=== PATIENT | male | born 1990 | race Caucasian/White ===

== ENCOUNTER 2017-08-22 21:05 | Inpatient (IN) | payer SELFPAY ==
[2017-08-22 23:09] VITALS: BMI 23.7
--- NOTE | 2017-08-22 23:12 | HP ---
COWS - Scale Resting Pulse: 0= [place] 80 or Below Sweatin=Flushed/Facial Moisture Restless Observation: 1= Difficult to Sit Still Pupil Size: 0= Normal to Room Light Bone or Joint Aches: 1= Mild Discomfort Runny Nose/ Eye Tearin= Runny Nose/Eyes GI Upset > 30mins: 1= Stomach Cramp Tremor Observation: 1= Tremor [place], Not Seen Yawning Observation: 2= >3x During Session Anxiety or Irritability: 2=Irritable/Anxious Goose Flesh Skin: 0=Smooth Skin COWS Score: 12 Admission [facility] Chief Complaint: opioid withdrawal symptoms Allergies/Adverse Reactions: Allergies Allergy/AdvReac Type Severity Reaction Status Date / Time No Known Allergies Allergy Verified 08/22/17 22:48 History of Present Illness: 27 yo male with hx of nicotine, heroin (paranasal), crack / cocaine and marijuana dependence is here seeking detox for the first time. Reports no prior detox. Reports was linked to a out patient suboxone program and stopped at [facility] : insomnia, depression and anxiety. Denies suicidal / homicidal ideation or hx of suicide attempt. Reports no significant period of sobriety. Others' Prescriptions Patient Name: Santos Meeks Date: 1990 Address: [address] [place] [address] Sex: Male Rx Written Rx Dispensed Drug Quantity Days Supply Prescriber Name 03/24/2017 03/25/2017 suboxone 8 mg-2 mg sl film 14 7 Leyda Durand MD 11/24/2016 11/25/2016 suboxone 8 mg-2 mg sl film 60 30 Leyda Durand MD 10/18/2016 10/20/2016 suboxone 8 mg-2 mg sl film 30 15 Leyda Durand MD 10/06/2016 10/07/2016 suboxone 8 mg-2 mg sl film 30 15 Leyda Durand MD Exam Limitations: No Limitations - Ebola screening Have you traveled outside of the country in the last 21 days: No Have you had contact with anyone from an Ebola affected area: No Do you have a fever: No - Review of Systems Constitutional: Chills, Loss of Appetite, Changes in sleep, Unintentional Wgt. Loss (10 lbs) EENT: reports: Other (runny nose) Respiratory: reports: No Symptoms reported Cardiac: reports: No Symptoms Reported GI: reports: Poor Appetite, Poor Fluid Intake, Abdominal cramping : reports: No Symptoms Reported Musculoskeletal: reports: Back Pain Integumentary: reports: No Symptoms Reported Neuro: reports: Seizure (when using oxycontin, last seizure 2 years ago) Endocrine: reports: Increased Thirst Hematology: reports: No Symptoms Reported Psychiatric: reports: Anxious Other Systems: Reviewed and Negative Patient History - Patient Medical History Hx Anemia: No Hx Asthma: No Hx Chronic Obstructive Pulmonary Disease (COPD): No Hx Cancer: No Hx Cardiac Disorders: No Hx Congestive Heart Failure: No Hx Hypertension: No Hx Hypercholesterolemia: No Hx Pacemaker: No HX Cerebrovascular Accident: No Hx Seizures: Yes (DRUG RELATED SEIZSURE -2016) Hx Diabetes: No Hx Gastrointestinal Disorders: No Hx Liver Disease: No Hx Genitourinary Disorders: No Hx Sexually Transmitted Disorders: No Hx Renal Disease (ESRD): No Hx Thyroid Disease: No Hx Human Immunodeficiency Virus (HIV): No (last tested 2 years ago, declines testing ) Hx Hepatitis C: No Hx Depression: Yes Hx Suicide Attempt: No Hx Bipolar Disorder: No Hx Schizophrenia: No - Patient Surgical History Past Surgical History: Yes Hx Neurologic Surgery: No Hx Cataract Extraction: No Hx Cardiac Surgery: No Hx Lung Surgery: No Hx Breast Surgery: No Hx Breast Biopsy: No Hx Abdominal Surgery: No Hx Appendectomy: No Hx Cholecystectomy: No Hx Genitourinary Surgery: No Hx Section: No Hx Orthopedic Surgery: Yes (RIGHT KNEE SX) Anesthesia Reaction: No - PPD History Previous Implant?: No Documented Results: Negative w/o proof PPD to be Administered?: Yes - Smoking Cessation Smoking history: Current every day smoker Have you smoked in the past 12 months: Yes Aproximately how many cigarettes per day: 10 Hx Chewing Tobacco Use: No Initiated information on smoking cessation: Yes 'Breaking Loose' booklet given: 08/22/17 - Substance & Tx. History Hx Alcohol Use: No Hx Substance Use: Yes Substance Use Type: Alcohol, Cocaine, Heroin, Marijuana Hx Substance Use Treatment: No - Substances Abused Heroin Route: Inhalation Frequency: Daily Amount used: 8-10 BAGS DAILY Age of first use: 21 Date of Last Use: 08/20/17 Crack Route: Smoking Frequency: 3-6 times per week Amount used: 2 BAGS WHEN USED Age of first use: 26 Date of Last Use: 08/21/17 Marijuana/Hashish Route: Smoking Frequency: Daily Amount used: 2-3 BLUNTS DAILY Age of first use: 16 Date of Last Use: 08/22/17 Family Disease History - Family Disease History Family Disease History: Other: Father (, alcoholism ), Mother (thyroid d/ o ) Admission Physical Exam [facility] - Physical General Appearance: Yes: Disheveled, Mild Distress, Thin, Sweating, Anxious HEENTM: Yes: EOMI, Hearing grossly Normal, Normal ENT Inspection, Normocephalic , Normal Voice, JENNIFER, Pharynx Normal, Tm's normal Respiratory: Yes: Chest Non-Tender, Lungs Clear, Normal Breath Sounds, No Respiratory Distress, No Accessory Muscle Use Neck: Yes: No masses,lesions,Nodules, Trachea in good position Breast: Yes: Breast Exam Deferred Cardiology: Yes: Regular Rhythm, Regular Rate Abdominal: Yes: Normal Bowel Sounds, Non Tender, Flat, Soft Genitourinary: Yes: Within Normal Limits Back: Yes: Normal Inspection Musculoskeletal: Yes: full range of Motion, Gait Steady, Pelvis Stable, Back pain Extremities: Yes: Normal Capillary Refill, Normal Inspection, Normal Range of Motion, Non-Tender Neurological: Yes: devil dog II-XII NML intact, Fully Oriented, Alert, Motor Strength 5/5, Depressed Affect Integumentary: Yes: Normal Color, Warm, Diaphoresis Lymphatic: Yes: Within Normal Limits - Diagnostic (1) Opioid dependence with withdrawal Current Visit: Yes Status: Acute (2) Marijuana dependence Current Visit: Yes Status: Acute (3) Cocaine dependence Current Visit: Yes Status: Acute Qualifiers: Substance use status: uncomplicated Qualified Code(s): F14.20 - Cocaine dependence, uncomplicated (4) Insomnia Current Visit: Yes Status: Acute Qualifiers: Insomnia type: unspecified Qualified Code(s): G47.00 - Insomnia, unspecified (5) Nicotine dependence Current Visit: Yes Status: Acute Qualifiers: Nicotine product type: cigarettes (6) Back pain Current Visit: Yes Status: Acute Qualifiers: Back pain location: low back pain Chronicity: acute Back pain laterality : midline Sciatica presence: without sciatica Qualified Code(s): M54.5 - Low back pain Cleared for Admission [facility] - Detox or Rehab [facility] Level of Care: Medically Supervised Detox Regimen/Protocol: Methadone
[2017-08-22] MEDS ORDERED: MAGNESIUM HYDROX 2400MG/30ML ORAL SUSPENSION 30 ML CUP PO PRN (23:18)
[2017-08-22] MEDS ORDERED: MAGNESIUM CITRATE 300 ML BOTTLE PO PRN (23:18)
[2017-08-22] MEDS ORDERED: LOPERAMIDE HCL 2 MG CAPSULE PO PRN (23:18)
[2017-08-22] MEDS ORDERED: guaiFENesin/D-METHORPHAN HB 10 ML UNIT-DOSE CUPS PO PRN (23:18)
[2017-08-22] MEDS ORDERED: ACETAMINOPHEN 325 MG TABLET (FP) PO PRN (23:18)
[2017-08-22] MEDS ORDERED: MENTHOL/PHENOL 1 EACH UD MM PRN (23:18)
[2017-08-22] MEDS ORDERED: MAG HYDROX/AL HYDROX/SIMETH 30 ML UNIT-DOSE CUP PO PRN (23:18)
[2017-08-22] MEDS ORDERED: IBUPROFEN 400 MG TABLET (FP) PO PRN (23:18)
[2017-08-22] MEDS ORDERED: P-EPHED 60MG/TRIPROLIDI 2.5MG TABLET PO PRN (23:18)
[2017-08-23] MEDS ORDERED: METHADONE HCL 10 MG TABLET (FOR DETOX USE ONLY) PO ONE ×4 (00:07→23:00)
[2017-08-23] MEDS: diazePAM 5 MG TABLET PO PRN ×5 (02:25→22:31)
[2017-08-23] MEDS: NICOTINE POLACRILEX 2 MG GUM BC PRN ×7 (02:33→15:36)
[2017-08-23] MEDS: hydrOXYzine PAMOATE 50 MG CAPSULE (FP) PO PRN (04:38)
--- NOTE | 2017-08-23 07:40 | CONSULT ---
[facility] Psychiatric Consult - Data Date of interview: 08/23/17 Admission source: [facility] Identifying data: This is 27 years old male, single, lifing with family, unemployew, with no PA support, with no psychiatric hospitalization history, with history of nicotine, heroin (paranasal), crack / cocaine and marijuana dependence is here seeking for detox, reporting withdrawal symptoms. Substance Abuse History: - Smoking Cessation. Smoking history: Current every day smoker. Have you smoked in the past 12 months: Yes. Aproximately how many cigarettes per day: 10. Hx Chewing Tobacco Use: No. Initiated information on smoking cessation: Yes. 'Breaking Loose' booklet given: 08/22/17. - Substance & Tx. History. Hx Alcohol Use: No. Hx Substance Use: Yes. Substance Use Type : Alcohol, Cocaine, Heroin, Marijuana. Hx Substance Use Treatment: No. - Substances Abused. Heroin. Route: Inhalation. Frequency: Daily. Amount used: 8-10 BAGS DAILY. Age of first use: 21. Date of Last Use: 08/20/17. Crack. Route: Smoking. Frequency: 3-6 times per week. Amount used: 2 BAGS WHEN USED. Age of first use: 26. Date of Last Use: 08/21/17. Marijuana/ Hashish. Route: Smoking. Frequency: Daily. Amount used: 2-3 BLUNTS DAILY. Age of first use: 16. Date of Last Use: 08/22/17 Medical History: LBP Psychiatric History: Patient denies past psychiatric history, no medications taking prior to admission Physical/Sexual Abuse/Trauma History: Denies Additional Comment: Observation. Detox Unit Care Protocol Mental Status Exam - Mental Status Exam Alert and Oriented to: Person Cognitive Function: Fair Patient Appearance: Unkempt Mood: Sad Affect: Flat Patient Behavior: Sedated Speech Pattern: Delayed Voice Loudness: Mildly Soft/Quiet Thought Process: Circumstantial Thought Disorder: Being Controlled Hallucinations: Denies Suicidal Ideation: Denies Homicidal Ideation: Denies Insight/Judgement: Fair Sleep: Difficulty falling asleep Appetite: Fair Muscle strength/Tone: Normal Gait/Station: Normal Additional Comments: Observation. Detox Unit Care Protocol Psychiatric Findings - Problem List ([place] 1, 2,3) (1) Drug-induced mood disorder Current Visit: Yes Status: Suspected (2) Cocaine dependence Current Visit: Yes Status: Acute Qualifiers: Substance use status: uncomplicated Qualified Code(s): F14.20 - Cocaine dependence, uncomplicated (3) Marijuana dependence Current Visit: Yes Status: Acute (4) Nicotine dependence Current Visit: Yes Status: Acute Qualifiers: Nicotine product type: cigarettes (5) Opioid dependence with withdrawal Current Visit: Yes Status: Acute - Initial Treatment Plan Initial Treatment Plan: Observation. Detox Unit Care Protocol
[2017-08-23] MEDS ORDERED: BACLOFEN 10 MG TABLET (FP) PO ONE (09:27)
--- NOTE | 2017-08-23 09:29 | PN ---
S CIWA - CIWA Score Nausea/Vomitin-Mild Nausea/No Vomiting Muscle Tremors: 4-Moderate,w/Arms Extend Anxiety: 2 Agitation: 3 Paroxysmal Sweats: 1-Minimal Palms Moist Orientation: 0-Oriented Tacttile Disturbances: 0-None Auditory Disturbances: 0-None Visual Disturbances: 0-None Headache: 0-None Present CIWA-Ar Total Score: 11 BHS Progress Note (SOAP) Subjective: SWEAT TREMOR RESTLESSNESS MUSCLE ACHE TROUBLE SLEEP AT NIGHT Objective: 08/23/17 09:29 Vital Signs Temperature 98.1 F 08/23/17 06:00 Pulse Rate 71 08/23/17 06:00 Respiratory Rate 18 08/23/17 06:00 Blood Pressure 131/87 08/23/17 06:00 O2 Sat by Pulse Oximetry (%) LAB NOT AVAILABLE AT THIS TIME Assessment: 08/23/17 09:29 WITHDRAWAL SX MUSCLE CRAMP Plan: CONTINUE DETOX BACLOFEN X 1 DOSE
--- NOTE | 2017-08-23 09:38 | EKG ---
Test Reason : Blood Pressure : / mmHG Vent. Rate : 072 BPM Atrial Rate : 072 BPM P-R Int : 158 ms QRS Dur : 082 ms QT Int : 408 ms P-R-T Axes : 048 069 027 degrees QTc Int : 446 ms NORMAL SINUS RHYTHM NORMAL ECG NO PREVIOUS ECGS AVAILABLE Confirmed by ELISABETH MUNOZ, AMELIA ([id number]) on 08/23/2017 9:38:29 AM Referred By: Confirmed By:AMELIA BARBER MD
[2017-08-23 09:42] LABS: URINE APPEARANCE CLEAR; URINE BILIRUBIN NEGATIVE (<2.0 mg/dL); URINE COLOR LTYELLOW; URINE GLUCOSE (UA) NEGATIVE (NEGATIVE); URINE KETONE NEGATIVE (NEGATIVE); URINE LEUK ESTERASE NEGATIVE (NEGATIVE); URINE NITRITE NEGATIVE (NEGATIVE); URINE PROTEIN NEGATIVE (NEGATIVE); URINE UROBILINOGEN NEGATIVE mg/dL (0.2-1.0)
[2017-08-23 10:07] LABS: HEMATOCRIT 39.9 % (35.4-49); HEMOGLOBIN 13.5 GM/dL (11.7-16.9); MCH 30.5 pg (25.7-33.7); MCHC 33.9 g/dl (32.0-35.9); MEAN CELL VOLUME 90.2 fl (80-96); MEAN PLT VOLUME 8.1 fl (7.5-11.1); PLATELET COUNT 347 K/MM3 (134-434); RBC 4.43 M/mm3 (4.00-5.60); RDW 13.7 % (11.9-15.9); WHITE BLOOD COUNT 13.4 K/mm3 (4.0-10.0)
[2017-08-23] MEDS: PRENATAL VITAMINS W/ FOLIC ACID TABLET (FP) PO SCH (10:18)
[2017-08-23] MEDS: NICOTINE 14 MG/24 HOURS TOPICAL PATCH TD SCH (10:19)
--- NOTE | 2017-08-23 11:09 | PN ---
BHS COWS - Scale Resting Pulse: 1= [place] 81-100 Sweatin= Chills/Flushing Restless Observation: 1= Difficult to Sit Still Pupil Size: 1= Pupils >than Normal Bone or Joint Aches: 2= Severe Diffuse Aches Runny Nose/ Eye Tearin= Nasal Congestion GI Upset > 30mins: 1= Stomach Cramp Tremor Observation of Outstretched Hands: 1= Tremor [place], Not Seen Yawning Observation: 1= 1-2x During Session Anxiety or Irritability: 2=Irritable/Anxious Goose Flesh Skin: 0=Smooth Skin COWS Score: 12
[2017-08-23 13:22] LABS: CHLORIDE 109 mmol/L (98-107); POTASSIUM 3.6 mmol/L (3.5-5.1); SODIUM 145 mmol/L (136-145)
[2017-08-23 13:42] LABS: ALBUMIN 4.2 g/dl (3.4-5.0); ALK PHOS 49 U/L (45-117); ANION GAP 13 (8-16); BILIRUBIN,TOTAL 0.5 mg/dL (0.2-1.0); BLOOD UREA NITROGEN 11 mg/dL (7-18); CO2 23 mmol/L (21-32); CREATININE 0.8 mg/dL (0.7-1.3); GLUCOSE,RANDOM 90 mg/dL (74-106); SGOT/AST 14 U/L (15-37); SGPT/ALT 28 U/L (12-78)
[2017-08-23] MEDS: THIAMINE HCL 100 MG TABLET (FP) PO SCH (22:31)
[2017-08-24] MEDS ORDERED: METHADONE HCL 10 MG TABLET (FOR DETOX USE ONLY) PO ONE (10:00)
--- NOTE | 2017-08-24 10:08 | PN ---
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 Objective: 08/24/17 10:05 Vital Signs Temperature 97.7 F 08/24/17 09:15 Pulse Rate 80 08/24/17 09:15 Respiratory Rate 18 08/24/17 09:15 Blood Pressure 136/76 08/24/17 09:15 O2 Sat by Pulse Oximetry (%) Laboratory Last Values WBC 13.4 K/mm3 (4.0-10.0) H 08/23/17 06:40 RBC 4.43 M/mm3 (4.00-5.60) 08/23/17 06:40 Hgb 13.5 GM/dL (11.7-16.9) 08/23/17 06:40 Hct 39.9 % (35.4-49) 08/23/17 06:40 MCV 90.2 fl (80-96) 08/23/17 06:40 MCH 30.5 pg (25.7-33.7) 08/23/17 06:40 MCHC 33.9 g/dl (32.0-35.9) 08/23/17 06:40 RDW 13.7 % (11.9-15.9) 08/23/17 06:40 Plt Count 347 K/MM3 (134-434) 08/23/17 06:40 MPV 8.1 fl (7.5-11.1) 08/23/17 06:40 Sodium 145 mmol/L (136-145) 08/23/17 06:40 Potassium 3.6 mmol/L (3.5-5.1) 08/23/17 06:40 Chloride 109 mmol/L (98-107) H 08/23/17 06:40 Carbon Dioxide 23 mmol/L (21-32) 08/23/17 06:40 Anion Gap 13 (8-16) 08/23/17 06:40 BUN 11 mg/dL (7-18) 08/23/17 06:40 Creatinine 0.8 mg/dL (0.7-1.3) 08/23/17 06:40 Creat Clearance w eGFR > 60 (>60) 08/23/17 06:40 Random Glucose 90 mg/dL (74-106) 08/23/17 06:40 Calcium 9.0 mg/dL (8.5-10.1) 08/23/17 06:40 Total Bilirubin 0.5 mg/dL (0.2-1.0) 08/23/17 06:40 AST 14 U/L (15-37) L 08/23/17 06:40 ALT 28 U/L (12-78) 08/23/17 06:40 Alkaline Phosphatase 49 U/L (45-117) 08/23/17 06:40 Total Protein 7.0 g/dl (6.4-8.2) 08/23/17 06:40 Albumin 4.2 g/dl (3.4-5.0) 08/23/17 06:40 Urine Color Ltyellow 08/23/17 06:40 Urine Appearance Clear 08/23/17 06:40 Urine pH 6.0 (5.0-8.0) 08/23/17 06:40 Ur Specific [place] 1.019 (1.001-1.035) 08/23/17 06:40 Urine Protein Negative (NEGATIVE) 08/23/17 06:40 Urine Glucose (UA) Negative (NEGATIVE) 08/23/17 06:40 Urine Ketones Negative (NEGATIVE) 08/23/17 06:40 Urine Blood Negative (NEGATIVE) 08/23/17 06:40 Urine Nitrite Negative (NEGATIVE) 08/23/17 06:40 Urine Bilirubin Negative (<2.0 mg/dL) 08/23/17 06:40 Urine Urobilinogen Negative mg/dL (0.2-1.0) 08/23/17 06:40 Ur Leukocyte Esterase Negative (NEGATIVE) 08/23/17 06:40 RPR Titer Nonreactive (NONREACTIVE) 08/23/17 06:40 lab noted Assessment: 08/24/17 10:07 withdrawal sx Plan: continue detox
[2017-08-24] MEDS: NICOTINE 14 MG/24 HOURS TOPICAL PATCH TD SCH (10:15)
[2017-08-24] MEDS: PRENATAL VITAMINS W/ FOLIC ACID TABLET (FP) PO SCH (10:15)
--- NOTE | 2017-08-24 11:14 | PN ---
Psychiatric Progress Note Vital Signs: Vital Signs Period Temp Pulse Resp BP Sys/Lopez Pulse Ox Last 24 Hr 97.7 F-98.2 F 76-85 18-18 133-138/67-78 Date of Session: 08/24/17 Chief Complaint:: Insomnia HPI: Patient reports insomnia, anxiety, reports taking prior to admission: ' Ambien 10mg po qhs. Seroquel 50m,g po tid Current Medications: Active Medications Generic Name Dose Route Start Last Admin Trade Name Freq PRN Reason Stop Dose Admin Acetaminophen 650 mg 08/22/17 23:18 Tylenol - PO Q4H PRN FEVER Al Hydroxide/Mg Hydroxide 30 ml 08/22/17 23:18 Mylanta Oral Suspension - PO Q6H PRN DYSPEPSIA Diazepam 10 mg 08/23/17 00:07 08/23/17 22:31 Valium - PO 08/26/17 00:06 10 mg Q4H PRN Administration WITHDRAWAL(CONT SUBST) Eucalyptus/Menthol/Phenol/Sorbitol 1 each 08/22/17 23:18 Cepastat Lozenge - MM Q4H PRN SORE THROAT Guaifenesin 10 ml 08/22/17 23:18 Robitussin Dm - PO Q6H PRN COUGH Hydroxyzine Pamoate 50 mg 08/22/17 23:18 08/23/17 04:38 Vistaril - PO 50 mg Q4H PRN Administration AGITATION Ibuprofen 400 mg 08/22/17 23:18 Motrin - PO Q6H PRN PAIN LEVEL 4-6 Loperamide HCl 4 mg 08/22/17 23:18 Imodium - PO Q6H PRN DIARRHEA Magnesium Citrate 300 ml 08/22/17 23:18 Citroma - PO Q48H PRN CONSTIPATION Magnesium Hydroxide 30 ml 08/22/17 23:18 Milk Of Magnesia - PO DAILY PRN CONSTIPATION Melatonin 5 mg 08/22/17 22:00 Melatonin PO HS PRN INSOMNIA Methadone HCl 15 mg 08/25/17 10:00 Dolophine - PO 08/25/17 10:01 ONCE ONE Methadone HCl 5 mg 08/28/17 06:00 Dolophine - PO 08/28/17 06:01 ONCE@0600 ONE Methadone HCl 15 mg 08/26/17 10:00 Dolophine - PO 06/16/18 10:01 ONCE ONE Methadone HCl 10 mg 08/27/17 10:00 Dolophine - PO 08/27/17 10:01 ONCE ONE Nicotine 14 mg 08/23/17 10:00 08/24/17 10:15 Nicoderm Patch - TD Not Given DAILY MARIANELA Nicotine Polacrilex 4 mg 08/24/17 10:43 Nicorette Gum - BUC Q2H PRN NICOTINE REPLACEMENT RX Multivit/Folic Acid/Iron 1 tab 08/23/17 10:00 08/24/17 10:15 Vitamins (Sjr) - PO 1 tab DAILY MARIANELA Administration Pseudoephedrine/Triprolidine 1 combo 08/22/17 23:18 Actifed - PO TID PRN NASAL CONGESTION Quetiapine Fumarate 50 mg 08/24/17 14:00 Seroquel - PO TID MARIANELA Thiamine HCl 100 mg 08/23/17 22:00 08/23/17 22:31 Vitamin B1 - PO 100 mg HS MARIANELA Administration Zolpidem Tartrate 10 mg 08/24/17 22:00 Ambien - PO 08/27/17 21:59 HS PRN INSOMNIA Medication(s) Change(s): 'Ambien 10mg po qhs. Seroquel 50m,g po tid Mental Status Exam - Mental Status Exam Alert and Oriented to: Person Cognitive Function: Fair Patient Appearance: Unkempt Mood: Anxious Affect: Mood Congruent Patient Behavior: Talkative, Cooperative Speech Pattern: Appropriate Voice Loudness: Mildly Loud Thought Process: Goal Oriented Thought Disorder: Being Controlled Hallucinations: Denies Suicidal Ideation: Denies Homicidal Ideation: Denies Insight/Judgement: Fair Sleep: Difficulty falling asleep Appetite: Fair Muscle strength/Tone: Normal Gait/Station: Normal Additional Comments: 'Ambien 10mg po qhs. Seroquel 50m,g po tid Psychiatric Treatment Plan - Problem List (1) Drug-induced mood disorder Current Visit: Yes (2) Cocaine dependence Current Visit: Yes Qualifiers: Substance use status: uncomplicated Qualified Code(s): F14.20 - Cocaine dependence, uncomplicated (3) Marijuana dependence Current Visit: Yes (4) Nicotine dependence Current Visit: Yes Qualifiers: Nicotine product type: cigarettes (5) Opioid dependence with withdrawal Current Visit: Yes Initial treatment plan: 'Ambien 10mg po qhs. Seroquel 50m,g po tid
[2017-08-24] MEDS: NICOTINE POLACRILEX 4 MG GUM BUC PRN ×5 (12:06→22:34)
[2017-08-24] MEDS: diazePAM 5 MG TABLET PO PRN ×3 (12:06→22:34)
[2017-08-24] MEDS: QUEtiapine FUMARATE 50 MG TABLET PO SCH ×2 (14:02→22:34)
[2017-08-24] MEDS: THIAMINE HCL 100 MG TABLET (FP) PO SCH (23:18)
[2017-08-25] MEDS: QUEtiapine FUMARATE 50 MG TABLET PO SCH ×3 (05:52→22:37)
[2017-08-25] MEDS: diazePAM 5 MG TABLET PO PRN ×4 (05:56→19:33)
[2017-08-25] MEDS: NICOTINE POLACRILEX 4 MG GUM BUC PRN ×6 (05:57→22:38)
[2017-08-25] MEDS ORDERED: METHADONE HCL 5 MG TABLET (FOR DETOX USE ONLY) PO ONE (10:00)
[2017-08-25] MEDS: PRENATAL VITAMINS W/ FOLIC ACID TABLET (FP) PO SCH (11:09)
[2017-08-25] MEDS: NICOTINE 14 MG/24 HOURS TOPICAL PATCH TD SCH (11:10)
--- NOTE | 2017-08-25 11:58 | PN ---
BHS Progress Note (SOAP) Subjective: ANXIETY,BODY ACHES/SORE MUSCLES,RESTLESSNESS AND PACING. ALERT O X 3. OOB AMBULATING ON UNIT WITH STEADY GAIT. Objective: 08/25/17 11:53 Vital Signs 08/25/17 08/25/17 07:19 10:03 Temperature 96.8 F L 97.0 F L Pulse Rate 71 70 Respiratory 18 16 Rate Blood Pressure 117/61 126/63 Laboratory Tests 08/23/17 08/23/17 08/23/17 06:40 06:40 06:40 WBC 13.4 H RBC 4.43 Hgb 13.5 Hct 39.9 MCV 90.2 MCH 30.5 MCHC 33.9 RDW 13.7 Plt Count 347 MPV 8.1 Sodium 145 Potassium 3.6 Chloride 109 H Carbon Dioxide 23 Anion Gap 13 BUN 11 Creatinine 0.8 Creat Clearance w eGFR > 60 Random Glucose 90 Calcium 9.0 Total Bilirubin 0.5 AST 14 L ALT 28 Alkaline Phosphatase 49 Total Protein 7.0 Albumin 4.2 Urine Color Urine Appearance Urine pH Ur Specific [place] Urine Protein Urine Glucose (UA) Urine Ketones Urine Blood Urine Nitrite Urine Bilirubin Urine Urobilinogen Ur Leukocyte Esterase RPR Titer Nonreactive 08/23/17 06:40 WBC RBC Hgb Hct MCV MCH MCHC RDW Plt Count MPV Sodium Potassium Chloride Carbon Dioxide Anion Gap BUN Creatinine Creat Clearance w eGFR Random Glucose Calcium Total Bilirubin AST ALT Alkaline Phosphatase Total Protein Albumin Urine Color Ltyellow Urine Appearance Clear Urine pH 6.0 Ur Specific [place] 1.019 Urine Protein Negative Urine Glucose (UA) Negative Urine Ketones Negative Urine Blood Negative Urine Nitrite Negative Urine Bilirubin Negative Urine Urobilinogen Negative Ur Leukocyte Esterase Negative RPR Titer Assessment: 08/25/17 11:55 WITHDRAWAL SX Plan: CONTINUE DETOX
[2017-08-25] MEDS: THIAMINE HCL 100 MG TABLET (FP) PO SCH (22:37)
[2017-08-25] MEDS: ZOLPIDEM TARTRATE 10 MG TABLET (PARK CARE ONLY) PO PRN (22:37)
[2017-08-26] MEDS: hydrOXYzine PAMOATE 50 MG CAPSULE (FP) PO PRN ×3 (00:49→22:16)
[2017-08-26] MEDS: MELATONIN 5 MG TABLETS PO PRN (00:49)
[2017-08-26] MEDS: QUEtiapine FUMARATE 50 MG TABLET PO SCH ×3 (05:45→22:16)
[2017-08-26] MEDS: NICOTINE POLACRILEX 4 MG GUM BUC PRN ×6 (05:47→22:15)
[2017-08-26] MEDS ORDERED: METHADONE HCL 5 MG TABLET (FOR DETOX USE ONLY) PO ONE (10:00)
[2017-08-26] MEDS: PRENATAL VITAMINS W/ FOLIC ACID TABLET (FP) PO SCH (10:16)
[2017-08-26] MEDS: NICOTINE 14 MG/24 HOURS TOPICAL PATCH TD SCH (10:18)
--- NOTE | 2017-08-26 14:11 | PN ---
BHS Progress Note (SOAP) Subjective: Sweats Anxious Objective: 08/26/17 14:09 A & O x 3 Irritable/anxious Vital Signs Temperature 96.8 F L 08/26/17 10:15 Pulse Rate 84 08/26/17 10:15 Respiratory Rate 18 08/26/17 10:15 Blood Pressure 116/70 08/26/17 10:15 O2 Sat by Pulse Oximetry (%) Assessment: 08/26/17 14:10 withdrawal sx Plan: continue detox ativan x 1 dose for anxiety
[2017-08-26] MEDS ORDERED: diazePAM 5 MG TABLET PO ONE (14:30)
[2017-08-26] MEDS: ZOLPIDEM TARTRATE 10 MG TABLET (PARK CARE ONLY) PO PRN (22:16)
[2017-08-26] MEDS: THIAMINE HCL 100 MG TABLET (FP) PO SCH (22:16)
[2017-08-27] MEDS: NICOTINE POLACRILEX 4 MG GUM BUC PRN ×7 (02:59→22:26)
[2017-08-27] MEDS: QUEtiapine FUMARATE 50 MG TABLET PO SCH ×3 (05:06→22:25)
[2017-08-27] MEDS ORDERED: METHADONE HCL 10 MG TABLET (FOR DETOX USE ONLY) PO ONE (10:00)
[2017-08-27] MEDS: PRENATAL VITAMINS W/ FOLIC ACID TABLET (FP) PO SCH (10:22)
[2017-08-27] MEDS: NICOTINE 14 MG/24 HOURS TOPICAL PATCH TD SCH (10:25)
[2017-08-27] MEDS: hydrOXYzine PAMOATE 50 MG CAPSULE (FP) PO PRN ×3 (13:30→22:26)
--- NOTE | 2017-08-27 14:00 | PN ---
BHS Progress Note (SOAP) Subjective: .FEELING BETTER SLEEP BETTER AT NIGHT NO TREMOR NO BODY ACHES LESS SWEAT Objective: 08/27/17 13:59 Vital Signs Temperature 96.8 F L 08/27/17 09:51 Pulse Rate 100 H 08/27/17 09:51 Respiratory Rate 18 08/27/17 09:51 Blood Pressure 136/74 08/27/17 09:51 O2 Sat by Pulse Oximetry (%) Laboratory Last Values WBC 13.4 K/mm3 (4.0-10.0) H 08/23/17 06:40 RBC 4.43 M/mm3 (4.00-5.60) 08/23/17 06:40 Hgb 13.5 GM/dL (11.7-16.9) 08/23/17 06:40 Hct 39.9 % (35.4-49) 08/23/17 06:40 MCV 90.2 fl (80-96) 08/23/17 06:40 MCH 30.5 pg (25.7-33.7) 08/23/17 06:40 MCHC 33.9 g/dl (32.0-35.9) 08/23/17 06:40 RDW 13.7 % (11.9-15.9) 08/23/17 06:40 Plt Count 347 K/MM3 (134-434) 08/23/17 06:40 MPV 8.1 fl (7.5-11.1) 08/23/17 06:40 Sodium 145 mmol/L (136-145) 08/23/17 06:40 Potassium 3.6 mmol/L (3.5-5.1) 08/23/17 06:40 Chloride 109 mmol/L (98-107) H 08/23/17 06:40 Carbon Dioxide 23 mmol/L (21-32) 08/23/17 06:40 Anion Gap 13 (8-16) 08/23/17 06:40 BUN 11 mg/dL (7-18) 08/23/17 06:40 Creatinine 0.8 mg/dL (0.7-1.3) 08/23/17 06:40 Creat Clearance w eGFR > 60 (>60) 08/23/17 06:40 Random Glucose 90 mg/dL (74-106) 08/23/17 06:40 Calcium 9.0 mg/dL (8.5-10.1) 08/23/17 06:40 Total Bilirubin 0.5 mg/dL (0.2-1.0) 08/23/17 06:40 AST 14 U/L (15-37) L 08/23/17 06:40 ALT 28 U/L (12-78) 08/23/17 06:40 Alkaline Phosphatase 49 U/L (45-117) 08/23/17 06:40 Total Protein 7.0 g/dl (6.4-8.2) 08/23/17 06:40 Albumin 4.2 g/dl (3.4-5.0) 08/23/17 06:40 Urine Color Ltyellow 08/23/17 06:40 Urine Appearance Clear 08/23/17 06:40 Urine pH 6.0 (5.0-8.0) 08/23/17 06:40 Ur Specific [place] 1.019 (1.001-1.035) 08/23/17 06:40 Urine Protein Negative (NEGATIVE) 08/23/17 06:40 Urine Glucose (UA) Negative (NEGATIVE) 08/23/17 06:40 Urine Ketones Negative (NEGATIVE) 08/23/17 06:40 Urine Blood Negative (NEGATIVE) 08/23/17 06:40 Urine Nitrite Negative (NEGATIVE) 08/23/17 06:40 Urine Bilirubin Negative (<2.0 mg/dL) 08/23/17 06:40 Urine Urobilinogen Negative mg/dL (0.2-1.0) 08/23/17 06:40 Ur Leukocyte Esterase Negative (NEGATIVE) 08/23/17 06:40 RPR Titer Nonreactive (NONREACTIVE) 08/23/17 06:40 LAB NOTED Assessment: 08/27/17 14:00 MILD WITHDRAWAL SX Plan: MEDICALLY SUPERVISED DETOX
[2017-08-27] MEDS: ZOLPIDEM TARTRATE 10 MG TABLET (PARK CARE ONLY) PO PRN (20:47)
[2017-08-27] MEDS: THIAMINE HCL 100 MG TABLET (FP) PO SCH (22:25)
[2017-08-28] MEDS: MELATONIN 5 MG TABLETS PO PRN (00:42)
[2017-08-28] MEDS: NICOTINE POLACRILEX 4 MG GUM BUC PRN ×2 (00:51→05:43)
[2017-08-28] MEDS: QUEtiapine FUMARATE 50 MG TABLET PO SCH (05:39)
[2017-08-28] MEDS: hydrOXYzine PAMOATE 50 MG CAPSULE (FP) PO PRN (05:42)
[2017-08-28] MEDS ORDERED: METHADONE HCL 5 MG TABLET (FOR DETOX USE ONLY) PO ONE (06:00)
[2017-08-28 09:30] VITALS: BP 109/68; PULSE 83; TEMP 97.7
[2017-08-28] MEDS: PRENATAL VITAMINS W/ FOLIC ACID TABLET (FP) PO SCH (09:37)
[2017-08-28] MEDS: NICOTINE 14 MG/24 HOURS TOPICAL PATCH TD SCH (09:37)
--- NOTE | 2017-08-28 09:48 | DS ---
[facility] Detox Discharge Summary Admission Date: 08/22/17 Discharge Date: 08/28/17 - History Present History: Opioid Dependence Additional Comments: 27 years old male admitted 08/22/17 for opiate withdrawal sx completed opiate detox regimen tolerated well denies opiate withdrawal sx alert oriented x 3 no acute distress aftercare [facility] - Physical Exam Results Vital Signs: Vital Signs Temperature 97.7 F 08/28/17 09:30 Pulse Rate 83 08/28/17 09:30 Respiratory Rate 18 08/28/17 09:30 Blood Pressure 109/68 08/28/17 09:30 O2 Sat by Pulse Oximetry (%) Pertinent Admission Physical Exam Findings: opiate withdrawal sx Vital Signs Temperature 97.7 F 08/28/17 09:30 Pulse Rate 83 08/28/17 09:30 Respiratory Rate 18 08/28/17 09:30 Blood Pressure 109/68 08/28/17 09:30 O2 Sat by Pulse Oximetry (%) Laboratory Last Values WBC 13.4 K/mm3 (4.0-10.0) H 08/23/17 06:40 RBC 4.43 M/mm3 (4.00-5.60) 08/23/17 06:40 Hgb 13.5 GM/dL (11.7-16.9) 08/23/17 06:40 Hct 39.9 % (35.4-49) 08/23/17 06:40 MCV 90.2 fl (80-96) 08/23/17 06:40 MCH 30.5 pg (25.7-33.7) 08/23/17 06:40 MCHC 33.9 g/dl (32.0-35.9) 08/23/17 06:40 RDW 13.7 % (11.9-15.9) 08/23/17 06:40 Plt Count 347 K/MM3 (134-434) 08/23/17 06:40 MPV 8.1 fl (7.5-11.1) 08/23/17 06:40 Sodium 145 mmol/L (136-145) 08/23/17 06:40 Potassium 3.6 mmol/L (3.5-5.1) 08/23/17 06:40 Chloride 109 mmol/L (98-107) H 08/23/17 06:40 Carbon Dioxide 23 mmol/L (21-32) 08/23/17 06:40 Anion Gap 13 (8-16) 08/23/17 06:40 BUN 11 mg/dL (7-18) 08/23/17 06:40 Creatinine 0.8 mg/dL (0.7-1.3) 08/23/17 06:40 Creat Clearance w eGFR > 60 (>60) 08/23/17 06:40 Random Glucose 90 mg/dL (74-106) 08/23/17 06:40 Calcium 9.0 mg/dL (8.5-10.1) 08/23/17 06:40 Total Bilirubin 0.5 mg/dL (0.2-1.0) 08/23/17 06:40 AST 14 U/L (15-37) L 08/23/17 06:40 ALT 28 U/L (12-78) 08/23/17 06:40 Alkaline Phosphatase 49 U/L (45-117) 08/23/17 06:40 Total Protein 7.0 g/dl (6.4-8.2) 08/23/17 06:40 Albumin 4.2 g/dl (3.4-5.0) 08/23/17 06:40 Urine Color Ltyellow 08/23/17 06:40 Urine Appearance Clear 08/23/17 06:40 Urine pH 6.0 (5.0-8.0) 08/23/17 06:40 Ur Specific Labolt 1.019 (1.001-1.035) 08/23/17 06:40 Urine Protein Negative (NEGATIVE) 08/23/17 06:40 Urine Glucose (UA) Negative (NEGATIVE) 08/23/17 06:40 Urine Ketones Negative (NEGATIVE) 08/23/17 06:40 Urine Blood Negative (NEGATIVE) 08/23/17 06:40 Urine Nitrite Negative (NEGATIVE) 08/23/17 06:40 Urine Bilirubin Negative (<2.0 mg/dL) 08/23/17 06:40 Urine Urobilinogen Negative mg/dL (0.2-1.0) 08/23/17 06:40 Ur Leukocyte Esterase Negative (NEGATIVE) 08/23/17 06:40 RPR Titer Nonreactive (NONREACTIVE) 08/23/17 06:40 lab noted - Treatment Hospital Course: Detox Protocol Followed, Detoxed Safely, Responded well, Discharged Condition Good, Rehab Referral Accepted Patient has Accepted a Rehab Referral to: [facility] - Medication Discharge Medications: Ambulatory Orders NK [No Known Home Medication] 08/22/17 - Diagnosis (1) Nicotine dependence Status: Acute Qualifiers: Nicotine product type: cigarettes Substance use status: in withdrawal Qualified Code(s): F17.213 - Nicotine dependence, cigarettes, with withdrawal (2) Opioid dependence with withdrawal Status: Acute - AMA Did Patient Leave Against Medical Advice: No
== END 2017-08-28 09:29 | disposition home or self-care (01) | DRG 773 ==
LOC: YASAS 21:05 → Y6N 23:27
PROVIDERS: ADMIT Surgery; ATTEND Surgery
PROC: HZ2ZZZZ Detoxification Services for Substance Abuse Treatment (ICD-10-PCS; principal; 2017-08-22)
DX: F11.23 Opioid dependence with withdrawal (principal); F14.20 Cocaine dependence, uncomplicated; F12.20 Cannabis dependence, uncomplicated; F17.213 Nicotine dependence, cigarettes, with withdrawal; F19.24 Other psychoactive substance dependence with psychoactive substance-induced mood disorder; G47.00 Insomnia, unspecified; M54.5 Low back pain; R25.2 Cramp and spasm; Z86.69 Personal history of other diseases of the nervous system and sense organs
CPT/HCPCS: 36415; 80053; 81003; 85027; 86593; 93005; 93010; J0475